=== PATIENT | female | born 1975 | race Caucasian/White ===

== ENCOUNTER 2017-11-15 12:33 | Emergency (ER) | payer BC ==
--- NOTE | 2017-11-15 12:44 | ER Report ---
History and Physical Time Seen By MD: 12:43 HPI/ROS CHIEF COMPLAINT: Shortness of breath, palpitations, dizziness HISTORY OF PRESENT ILLNESS: Patient is a 42-year-old female here with complaints of shortness breath, palpitations and dizziness for several days. She reports that the shortness of breath has worsened today and that she has been having mild dizziness when she stands up from a seated position. She is from [place] and is traveling to [place] developed worsening shortness of breath when she entered the [facility]. She has not had altitude related illness in the past. She denies prior cardiac history, smoking history, lung disease. She reports being nauseated without having episodes of emesis. Patient is maintaining oxygen saturations in the high 90's% without supplemental oxygen. Patient is well-appearing at time of evaluation and in no acute distress. REVIEW OF SYSTEMS: Constitutional: No fever, no chills. Eyes: No discharge. ENT: No sore throat. Cardiovascular: No chest pain, no palpitations. Respiratory: No cough, no shortness of breath. Gastrointestinal: No abdominal pain, + nausea without vomiting. Genitourinary: No hematuria. Musculoskeletal: No back pain. Skin: No rashes. Neurological: No headache or blurred vision Allergies: Coded Allergies: No Known Drug Allergies (Unverified , 11/15/17) Home Meds Active Scripts Ondansetron (ZOFRAN ODT) 4 Mg Tab.rapdis, 4 MG PO Q6H Y for NAUSEA/VOMITING for 10 Days, #20 TAB.ZAN 0 Refills Prov:ALEXANDRA DONG DO 11/15/17 Reported Medications Fluconazole (FLUCONAZOLE) 100 Mg Tablet, 100 MG PO QWEEK 11/15/17 Nystatin (NYSTATIN) 500,000 Unit Tablet, [id number] UNIT PO BID 11/15/17 Constitutional Vital Sign - Last 24 Hours 11/15/17 11/15/17 11/15/17 11/15/17 12:35 12:44 12:48 13:00 Temp 98.3 Pulse 85 91 Resp 16 B/P (MAP) 121/63 121/63 (82) 98/55 (69) Pulse Ox 99 98 O2 Delivery Room Air 11/15/17 11/15/17 11/15/17 11/15/17 13:03 13:08 13:23 13:30 Pulse 75 80 65 B/P (MAP) 105/55 (72) Pulse Ox 100 100 97 11/15/17 11/15/17 11/15/17 11/15/17 13:38 13:53 14:00 14:08 Pulse 62 66 74 B/P (MAP) 116/70 (85) Pulse Ox 100 84 94 11/15/17 11/15/17 11/15/17 14:23 14:28 14:30 Pulse 78 79 B/P (MAP) 115/70 (85) Pulse Ox 98 97 Physical Exam General Appearance: The patient is alert, has no immediate need for airway protection and no signs of toxicity. NAD Eyes: Pupils equal and round no pallor or injection. ENT, Mouth: Mucous membranes are moist. Respiratory: There are no retractions, lungs are clear to auscultation. Cardiovascular: Regular rate and rhythm. [ ] Gastrointestinal: Abdomen is soft and non tender, no masses, bowel sounds normal. Neurological: No focal Neuro deficits Skin: Warm and dry, no rashes. Musculoskeletal: Neck is supple non tender. Extremities are nontender, nonswollen and have full range of motion. DIFFERENTIAL DIAGNOSIS: After history and physical exam differential diagnosis was considered for chest pain including but not limited to myocardial ischemia, pericarditis pulmonary embolus, chest wall pain, pleural inflammation and pulmonary infectious causes. Medical Decision Making Data Points Result Diagram: 11/15/17 1318 11/15/17 1318 Laboratory Hematology Test 11/15/17 13:18 Red Blood Count 4.41 M/uL (4.17-5.56) Mean Corpuscular Volume 92.2 fL (80.0-96.0) Mean Corpuscular Hemoglobin 32.2 pg (26.0-33.0) Mean Corpuscular Hemoglobin Concent 35.0 g/dL (32.0-36.0) Red Cell Distribution Width 12.8 % (11.5-14.5) Mean Platelet Volume 12.4 fL (7.2-11.1) Neutrophils (%) (Auto) 61.5 % (39.4-72.5) Lymphocytes (%) (Auto) 27.3 % (17.6-49.6) Monocytes (%) (Auto) 8.8 % (4.1-12.4) Eosinophils (%) (Auto) 1.5 % (0.4-6.7) Basophils (%) (Auto) 0.9 % (0.3-1.4) Nucleated RBC Relative Count (auto) 0.1 /100WBC Neutrophils # (Auto) 4.1 K/uL (2.0-7.4) Lymphocytes # (Auto) 1.8 K/uL (1.3-3.6) Monocytes # (Auto) 0.6 K/uL (0.3-1.0) Eosinophils # (Auto) 0.1 K/uL (0.0-0.5) Basophils # (Auto) 0.1 K/uL (0.0-0.1) Nucleated RBC Absolute Count (auto) 0.00 K/uL D-Dimer Quantitative (PE/DVT) < 0.27 ug/ml (0-0.50) Blood Gas Patient Temperature Unknown DEGREES Venous Blood pH 7.49 (7.31-7.41) Venous Blood Partial Pressure CO2 32 mmHg Venous Blood Partial Pressure O2 38 mmHg Venous Blood HCO3 25 mmol/L Venous Blood Oxygen Saturation 77 % Venous Blood Base Excess 1 mmol/L Oxygen Liters/Minute Unknown Sodium Level 142 mmol/L (137-145) Potassium Level 3.6 mmol/L (3.5-5.0) Chloride Level 103 mmol/L (98-107) Carbon Dioxide Level 25 mmol/L (22-31) Blood Urea Nitrogen 11 mg/dl (7-18) Creatinine 0.70 mg/dl (0.52-1.04) Glomerular Filtration Rate Calc > 60.0 Random Glucose 98 mg/dl (75-110) Calcium Level 9.5 mg/dl (8.4-10.2) Total Bilirubin 0.5 mg/dl (0.2-1.3) Aspartate Amino Transf (AST/SGOT) 19 U/L (0-35) Alanine Aminotransferase (ALT/SGPT) 23 U/L (0-56) Alkaline Phosphatase 55 U/L (0-126) Troponin I < 0.012 ng/ml B-Type Natriuretic Peptide 9 pg/ml (0-100) Total Protein 7.0 g/dl (6.3-8.2) Albumin 4.1 g/dl (3.5-5.0) Lipase 151 U/L (23-300) Human Chorionic Gonadotropin, Qual Negative (NEGATIVE) Chemistry Test 11/15/17 13:18 White Blood Count 6.6 k/uL (4.5-11.0) Red Blood Count 4.41 M/uL (4.17-5.56) Hemoglobin 14.2 g/dL (12.0-16.0) Hematocrit 40.6 % (34.0-47.0) Mean Corpuscular Volume 92.2 fL (80.0-96.0) Mean Corpuscular Hemoglobin 32.2 pg (26.0-33.0) Mean Corpuscular Hemoglobin Concent 35.0 g/dL (32.0-36.0) Red Cell Distribution Width 12.8 % (11.5-14.5) Platelet Count 202 K/uL (150-450) Mean Platelet Volume 12.4 fL (7.2-11.1) Neutrophils (%) (Auto) 61.5 % (39.4-72.5) Lymphocytes (%) (Auto) 27.3 % (17.6-49.6) Monocytes (%) (Auto) 8.8 % (4.1-12.4) Eosinophils (%) (Auto) 1.5 % (0.4-6.7) Basophils (%) (Auto) 0.9 % (0.3-1.4) Nucleated RBC Relative Count (auto) 0.1 /100WBC Neutrophils # (Auto) 4.1 K/uL (2.0-7.4) Lymphocytes # (Auto) 1.8 K/uL (1.3-3.6) Monocytes # (Auto) 0.6 K/uL (0.3-1.0) Eosinophils # (Auto) 0.1 K/uL (0.0-0.5) Basophils # (Auto) 0.1 K/uL (0.0-0.1) Nucleated RBC Absolute Count (auto) 0.00 K/uL D-Dimer Quantitative (PE/DVT) < 0.27 ug/ml (0-0.50) Blood Gas Patient Temperature Unknown DEGREES Venous Blood pH 7.49 (7.31-7.41) Venous Blood Partial Pressure CO2 32 mmHg Venous Blood Partial Pressure O2 38 mmHg Venous Blood HCO3 25 mmol/L Venous Blood Oxygen Saturation 77 % Venous Blood Base Excess 1 mmol/L Oxygen Liters/Minute Unknown Glomerular Filtration Rate Calc > 60.0 Calcium Level 9.5 mg/dl (8.4-10.2) Total Bilirubin 0.5 mg/dl (0.2-1.3) Aspartate Amino Transf (AST/SGOT) 19 U/L (0-35) Alanine Aminotransferase (ALT/SGPT) 23 U/L (0-56) Alkaline Phosphatase 55 U/L (0-126) Troponin I < 0.012 ng/ml B-Type Natriuretic Peptide 9 pg/ml (0-100) Total Protein 7.0 g/dl (6.3-8.2) Albumin 4.1 g/dl (3.5-5.0) Lipase 151 U/L (23-300) Human Chorionic Gonadotropin, Qual Negative (NEGATIVE) Coagulation Test 11/15/17 13:18 D-Dimer Quantitative (PE/DVT) < 0.27 ug/ml EKG/Imaging EKG Interpretation 12 lead EKG: Normal sinus rhythm, rate 79 no ischemic changes. Rhythm: normal sinus rhythm [place]: normal QRS: normal ST segments: normal Monitor Interpretation: Normal Sinus Rhythm Imaging Examination: CHEST PA AND LAT Comparison: None. History: Respiratory distress. Findings: No consolidation, nodule, or peribronchial inflammation. No pneumothorax, edema, or effusion. Cardiac and hilar contour size is normal. Osseous structures are intact. IMPRESSION: No evidence of acute cardiopulmonary disease. ED Course/Re-evaluation ED Course Patient is a 42-year-old female here with complaints of shortness of breath, palpitations and dizziness over the past several days while traveling with family. Patient was concerned that she may be suffering from altitude related illness. In order to rule out other more serious etiologies, A d-dimer and cardiac enzymes were drawn and were negative. Chest x-ray showed no acute cardiopulmonary process. EKG showed no acute arrhythmia or ischemic findings. Blood gas showed no acute findings. Patient was given a liter of fluids as well as Zofran with moderate relief of symptoms. Patient was provided with a prescription of Zofran for outpatient use. I discussed the findings with the patient and she voiced understanding. Patient agreed to return promptly with worsening symptoms, shortness breath, fevers, chills, blurred vision, headaches. Decision to Disposition Date: Nov 15, 2017 Decision to Disposition Time: 14:32 Depart Departure Latest Vital Signs Vital Signs Date Time Temp Pulse Resp B/P (MAP) Pulse Ox O2 Delivery O2 Flow Rate FiO2 11/15/17 14:30 115/70 (85) 11/15/17 14:28 79 97 11/15/17 12:35 98.3 16 Room Air Impression: Primary Impression: Dyspnea Condition: Improved Disposition: HOME OR SELF-CARE New Scripts Ondansetron (ZOFRAN ODT) 4 Mg Tab.rapdis 4 MG PO Q6H Y for NAUSEA/VOMITING for 10 Days, #20 TAB.ZAN 0 Refills Prov: ALEXANDRA DONG DO 11/15/17 Patient Instructions: Dyspnea (ED), Mountain Sickness (ED), Ondansetron (By mouth, Into the mouth) Additional Instructions: You may take 1 tablet of Zofran every 6 hours as needed for nausea. Please hydrate as tolerated to help with symptom management. Please proceed to the closest emergency department for shortness of breath worsens, develope worsening nausea or unable to tolerate oral intake. ALEXANDRA DONG DO Nov 15, 2017 12:44
[2017-11-15] MEDS ORDERED: [UNRECOGNIZED DRUG - CODE] PO (12:49)
[2017-11-15] MEDS ORDERED: FLUC100T39 PO (12:49)
[2017-11-15] MEDS ORDERED: LR(*) 1000 ML BAG 1,000 ML IV ONE (12:56)
[2017-11-15] MEDS ORDERED: ONDANSETRON 4 MG/2 ML VIAL IVP ONE (13:00)
[2017-11-15 13:39] LABS: PLATELET COUNT, AUTOMATED 202 K/uL (150-450)
--- NOTE | 2017-11-15 14:11 | RADIOLOGY IMAGING REPORT ---
FACILITY: PATIENT NAME: Arlene Ash : 1975 MR: [id number] V: [id number] EXAM DATE: ORDERING PHYSICIAN: ALEXANDRA DONG TECHNOLOGIST: Location: [facility] Patient: Arlene Ash : 1975 Visit/Account:[id number] Date of Sevice: 11/15/2017 Examination: CHEST PA AND LAT Comparison: None. History: Respiratory distress. Findings: No consolidation, nodule, or peribronchial inflammation. No pneumothorax, edema, or effusio n. Cardiac and hilar contour size is normal. Osseous structures are intact. IMPRESSION: No evidence of acute cardiopulmonary disease. Report Dictated By: Jh Villanueva MD at 11/15/2017 2:06 PM Report E-Signed By: Jh Villanueva MD at 11/15/2017 2:08 PM [id number]
[2017-11-15 14:30] VITALS: BP 115/70
[2017-11-15] MEDS ORDERED: ONDA4TAB PO (14:30)
--- NOTE | 2017-11-15 16:25 | EKG ---
FACILITY: [facility] PATIENT NAME: GAIL GOLD : [id number] MR: [id number] V: [id number] EXAM DATE: ORDERING PHYSICIAN: ALEXANDRA DONG TECHNOLOGIST: BRUNA Mei Reason : Blood Pressure : / mmHG Vent. Rate : 079 BPM Atrial Rate : 079 BPM P-R Int : 156 ms QRS Dur : 080 ms QT Int : 388 ms P-R-T Axes : 072 082 063 degrees QTc Int : 444 ms Normal sinus rhythm Possible Left atrial enlargement Borderline ECG No previous ECGs available Confirmed by KAMI HERNANDEZ ([id number]) on 11/16/2017 2:48:45 PM Referred By: IKER Confirmed By:KAMI HERNANDEZ
== END 2017-11-15 14:35 | disposition home or self-care (01) ==
LOC: ER 12:41
DX: R06.02 Shortness of breath (principal)
CPT/HCPCS: 71046; 82803; 83690; 83880; 84484; 84703; 85025; 85379; 93005; 96361; 96374; 99284; J2405; J7120; 82040; 82247; 82310; 82374; 82435; 82565; 82947; 84075; 84132; 84155; 84295; 84450; 84460; 84520